=== PATIENT | male | born 1995 | race Caucasian/White ===

== ENCOUNTER 2019-09-10 04:31 | Emergency (ER) | payer OTHER ==
[~2019-09-10] VITALS: Ht 193 cm; Wt 104.9 kg
--- NOTE | 2019-09-10 04:45 | NUR ---
PT AMBULATED BACK TO ROOM WITH A SMOOTH AND STEADY GAIT, NAD, RESP WNL, P/W/D, RESTING IN GURNEY, GIRLFRIEND AT . [facility]. CALL LIGHT ON LAP
--- NOTE | 2019-09-10 04:50 | NUR ---
SARAH MCGREGOR AT BS FOR EVAL AND DISCUSSING POC.
[2019-09-10] MEDS ORDERED: ONDANSETRON 2MG/ML, 2ML IVPush ONE (05:00)
[2019-09-10] MEDS ORDERED: FAMOTIDINE 20 MG/2 ML IV ONE (05:00)
[2019-09-10] MEDS ORDERED: SODIUM CHLORIDE 0.9% 1,000ML IVBOLUS ONE (05:00)
[2019-09-10] MEDS ORDERED: MORPHINE SULFATE 4 MG/ML, 1ML IVPush PRN (05:00)
[2019-09-10 05:11] LABS: BASOPHILS # (AUTO) 0.03 x10^3/uL (0-0.1); BASOPHILS % (AUTO) 1 % (0-1); EOSINOPHILS # (AUTO) 0.08 x10^3/uL (0-0.4); EOSINOPHILS % (AUTO) 1 % (1-7); LYMPHOCYTES # (AUTO) 1.28 x10^3/uL (1-3.4); LYMPHOCYTES % (AUTO) 23 % (22-44); MD NO; MEAN CORPUSCULAR HEMOGLOBIN 30.1 pg (27.5-34.5); MEAN CORPUSCULAR HGB CONC 34.4 g/dL (33.2-36.2); MEAN CORPUSCULAR VOLUME 87.6 fL (81-97); MEAN PLATELET VOLUME 8.8 fL (7.4-10.4); MONOCYTES # (AUTO) 0.43 x10^3/uL (0.2-0.8); MONOCYTES % (AUTO) 8 % (2-9); NEUTROPHILS # (AUTO) 3.67 x10^3/uL (1.8-6.8); NEUTROPHILS % (AUTO) 67 % (42-75); PLATELET COUNT 221 x10^3/uL (130-400); RED BLOOD COUNT 5.26 x10^6/uL (4.38-5.82); RED CELL DISTRIBUTION WIDTH 12.5 % (9.4-14.8)
[2019-09-10] MEDS ORDERED: ONDANSETRON 2MG/ML, 2ML ONE (05:11)
[2019-09-10] MEDS ORDERED: FAMOTIDINE 20 MG/2 ML ONE (05:11)
[2019-09-10 05:21] LABS: ALANINE AMINOTRANSFERASE 24 U/L (12-78); ANION GAP 4 mmol/L (5-15); CALCIUM 9.4 mg/dL (8.5-10.1); CHLORIDE 104 mmol/L (98-107)
[2019-09-10 05:23] LABS: ALKALINE PHOSPHATASE 81 U/L (45-117); BILIRUBIN,TOTAL 0.6 mg/dL (0.2-1.0); TOTAL PROTEIN 7.8 g/dL (6.4-8.2)
--- NOTE | 2019-09-10 05:42 | NUR ---
UA SENT TO LAB. PT RESTING IN [facility], DENIES ADDITIONAL NEEDS AT THIS TIME, P/W/D, GF AT BS. KEN. CODI AMANDA AT BS FOR EVAL AND DISCUSS POC
[2019-09-10] MEDS ORDERED: MAALOX/HYOSCYAMINE/LIDOCAINE 45 ML BTL PO ONE (06:00)
[2019-09-10] MEDS ORDERED: METOCLOPRAMIDE 5 MG/ML, 2ML IVPush ONE (06:00)
--- NOTE | 2019-09-10 06:00 | NUR ---
COVID SWAB WALKED TO LAB.
[2019-09-10] MEDS ORDERED: METOCLOPRAMIDE 5 MG/ML, 2ML ONE (06:01)
[2019-09-10] MEDS ORDERED: MAALOX/HYOSCYAMINE/LIDOCAINE 45 ML BTL ONE (06:01)
[2019-09-10] MEDS ORDERED: MORPHINE SULFATE 4 MG/ML, 1ML ONE (06:07)
--- NOTE | 2019-09-10 06:11 | NUR ---
PT MEDICATED PER JUN, RESTING IN [place], NAD, P/W/D, GF AT , WAITING FOR CT AND LAB RESULTS. WCTM. CALL LIGHT ON LAP.
[2019-09-10 06:27] LABS: MICROSCOPIC NOT IND
[2019-09-10] MEDS ORDERED: OMNIPAQUE 350 MG/ML, 100ML BOTTLE ONE (06:45)
--- NOTE | 2019-09-10 06:45 | NUR ---
PT RESTING IN [place], NAD, P/W/D, GF AT , WAITING FOR CT RESULTS. WCTM. CALL LIGHT ON LAP.
--- NOTE | 2019-09-10 07:01 | NUR ---
BEDSIDE REPORT TO ROSELIA MARCUS, PT CARE TRANSFERRED AT THIS TIME.
[2019-09-10 07:32] VITALS: BP 125/82
--- NOTE | 2019-09-10 07:32 | NUR ---
Sagar MCGREGOR AT [facility] TO DISCUSS POS. PT RESTING IN BED.
== END 2019-09-10 07:59 | disposition home or self-care (01) ==
LOC: ED 06:00
DX: Z03.818 Encounter for observation for suspected exposure to other biological agents ruled out (principal); R10.32 Left lower quadrant pain; R10.9 Unspecified abdominal pain; R19.7 Diarrhea, unspecified; R11.2 Nausea with vomiting, unspecified
CPT/HCPCS: 36415; 71045; 74177; 80053; 81003; 83690; 85025; 96361; 96374; 96375; 99285; J2270; J2405; J2765; J3490; J7030; Q9967; U0001

== ENCOUNTER 2019-10-07 05:14 | Emergency (ER) | payer OTHER ==
[~2019-10-07] VITALS: Ht 193 cm; Wt 105.5 kg
--- NOTE | 2019-10-07 05:30 | NUR ---
PT HERE FOR WHAT FEELS LIKE A FISH BONE STUCK IN HIS THROAT X 10 HOURS. PT IS MANAGING SECRETIONS AND ABLE TO SPEAK IN FULL SENTENCES. MD AT BEDSIDE
[2019-10-07] MEDS ORDERED: PROPOFOL 10 MG/ML, 20ML IVPush ONE ×2 (06:00→07:00)
[2019-10-07] MEDS ORDERED: PROPOFOL 10 MG/ML, 20ML ONE ×2 (06:17→06:25)
--- NOTE | 2019-10-07 06:57 | NUR ---
PT SEDATED FOR EXPLORATORY LARYNGASCOPE. PIV PLACED. PT DIFFICULT TO SEDATE BUT VSS. 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 SEE SEDATION PAPERS FOR VITAL SIGNS AND MEDICATIONS. PT NOW AAOX 4 AND HAS SPOKEN WITH MD ABOUT PROCEDURE. PT HAS NO NEEDS AT THIS TIME.
--- NOTE | 2019-10-07 07:07 | NUR ---
REPORT RECEIVED, CARE ASSUMED. PT DOZING INTERMITTENTLY, AROUSES TO NAME. SB-SR PER MONITOR. NO RESP DISTRESS NOTED. SATS 99% RA. NO NEEDS EXPRESSED AT THIS TIME. CONT TO MONITOR.
--- NOTE | 2019-10-07 07:13 | NUR ---
PT TO RADIOLOGY VIA [facility] FOR XRAY OF NECK.
--- NOTE | 2019-10-07 07:46 | NUR ---
PT CONT DOZING INTERMITTENTLY, AROUSES TO NAME. PT TO MAKE PHONE CALLS FOR TRANSPORT HOME. NO RESP DISTRESS NOTED.
--- NOTE | 2019-10-07 08:05 | NUR ---
PT CONT DOZING, AROUSES TO NAME. "I THINK I WILL HAVE A RIDE" SB-SR PER MONITOR. NO RESP DISTRESS. CONT ON RA 98%
[2019-10-07] MEDS ORDERED: MAALOX/HYOSCYAMINE/LIDOCAINE 45 ML BTL ONE (08:08)
--- NOTE | 2019-10-07 08:09 | NUR ---
PT WITH C/O INCREASED THROAT PAIN. DISCUSSED WITH DR KINCAID. MEDICATION ORDERED.
--- NOTE | 2019-10-07 08:22 | NUR ---
PT TRANSPORTATION HERE. IV DC'D WITH CANNULA INTACT. REVIEWED DC INSTRUCTIONS WITH PT. INCLUDING NO DRIVING OR ALCOHOLIC BEVERAGES FOR 24 HOURS. UNDERSTANDING VERBALIZED. PT DECLINED W/C. LEFT AMB, GAIT STEADY.
[2019-10-07 08:23] VITALS: BP 113/65
[2019-10-07] MEDS ORDERED: MAALOX/HYOSCYAMINE/LIDOCAINE 45 ML BTL PO ONE (08:30)
== END 2019-10-07 08:25 | disposition home or self-care (01) ==
LOC: ED 08:22
DX: R09.89 Other specified symptoms and signs involving the circulatory and respiratory systems (principal); J02.9 Acute pharyngitis, unspecified
CPT/HCPCS: 70360; 99152; 99285